=== PATIENT | female | born 1945 | race African-American/Black ===

== ENCOUNTER 2019-04-10 08:59 | Day surgery (SDC) | payer OTHER, BC ==
[2019-04-08 17:46] VITALS: BMI 26.2
[2019-04-10] MEDS ORDERED: BUPIVACAINE HCL/PF 0.5% (5MG/ML) 10 ML VIAL ONE (11:34)
[2019-04-10] MEDS ORDERED: ceFAZolin SODIUM 1 GM VIAL ONE ×3 (11:34→12:36)
[2019-04-10] MEDS ORDERED: MORPHINE SULFATE 10 MG/1 ML *VIAL ONE (11:55)
[2019-04-10] MEDS ORDERED: LIDOCAINE HCL/PF 2% SDV 5ML VIAL ONE (12:01)
[2019-04-10] MEDS ORDERED: PROPOFOL 20 ML ONE (12:02)
[2019-04-10] MEDS ORDERED: ceFAZolin SODIUM 1 GM VIAL IVPB ONE (12:08)
[2019-04-10] MEDS ORDERED: BUPIVACAINE HCL/PF 0.5% (5MG/ML) 10 ML VIAL IJ ONE ×2 (12:21→12:36)
[2019-04-10] MEDS ORDERED: KETOROLAC TROMETHAMINE 30 MG/1 ML VIAL ONE (12:35)
[2019-04-10] MEDS ORDERED: DEXAMETHASONE SOD PHOSPHATE 4 MG/1 ML VIAL ONE (12:35)
[2019-04-10] MEDS ORDERED: ONDANSETRON 4 MG/2 ML VIAL ONE (12:35)
[2019-04-10] MEDS ORDERED: ONDANSETRON 4 MG/2 ML VIAL IVPUSH PRN (12:48)
[2019-04-10] MEDS ORDERED: PROMETHAZINE HCL 25 MG/1 ML VIAL IVPUSH PRN (12:48)
[2019-04-10] MEDS ORDERED: oxyCODONE HCL 5 MG TABLET PO PRN (12:48)
[2019-04-10 13:43] VITALS: TEMP 97.7
[2019-04-10 14:24] VITALS: BP 128/60; PULSE 88
--- NOTE | 2019-04-10 14:52 | OP ---
DATE OF OPERATION: 04/10/2019 PREOPERATIVE DIAGNOSIS: Torn medial meniscus to the left knee. POSTOPERATIVE DIAGNOSES: 1. Torn medial and lateral meniscus, left knee. 2. 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 3. Extensive joint debris. 4. Fissuring and articular damage to the patellar cartilage. 5. Hypertrophic synovium. PROCEDURES PERFORMED: 1. Arthroscopy of the left knee with partial medial and lateral meniscectomy. 2. Stem cell recruitment using microdrilling technique. 3. Osteochondritis dissecans lesion medial femoral condyle. 4. Extensive joint debridement. 5. Chondroplasty. 6. Extensive synovectomy. SURGEON: Wes Lehman MD PLAS[facility] CENTER TECHNICIAN: CRISTIN Lee ANESTHESIA: Deyvi Lyles MD TYPE OF ANESTHESIA: General anesthesia. DESCRIPTION OF PROCEDURE: The procedure consisted of the patient being brought into the operating room and gently transferred from the stretcher to the OR table with all bony prominences well padded. The left knee was prepared and draped in a sterile fashion. The patient was given intravenous antibiotics and copious irrigation throughout the procedure to minimize risk for infection. A complete risk, benefit, alternative discussion was conducted with the patient, which was inclusive of, but not limited to, infection, bleeding, , paralysis, increased pain, need for repeat surgery. Patient asked questions and understood the procedure and desired to proceed with surgical treatment. Following sterile preparation and draping of the left leg, an appropriate time-out was conducted, which was inclusive of, but not limited to, type of surgery, site of surgery, surgeon, and anesthesiologist. Following sterile preparation and draping of the left leg, the suprapatellar medial and lateral joint line portals were used to introduce the arthroscope and arthroscopic instruments. There was noted to be extensive hypertrophic synovium in the suprapatellar pouch, and extensive synovectomy was performed. Medial and lateral gutters without plica or loose body. 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 The medial meniscus was found to have a tear of the posterior horn, and this was resected using shaver and radiofrequency wand. There was noted to be a 1.5-cm dim osteochondritis dissecans lesion on the medial femoral condyle, and using a 0.62-mm drill bit, a pattern of small drill holes was provided to provide stem cells to fill the defect, and these would be recruited for cartilaginous defect in the femoral condyle. The intercondylar region was noted to have extensive joint debris, and an extensive joint debridement was performed. Cruciate ligaments were found to be intact. Lateral meniscus was found to have a tear of the posterior horn, and this was resected using shaver and radiofrequency wand. The knee was then copiously irrigated with sterile saline irrigant. The wounds were closed with 4-0 undyed Vicryl followed by Steri-Strips, Xeroform, 4 x 4's, sterile Webril, JOHNY bandage, and a knee immobilizer. The patient's tourniquet was deflated after approximately 20 minutes of tourniquet time. There were no intraoperative complications. Patient had been transferred from the operating room to the recovery room in excellent condition. WES LEHMAN M.D. [id number]
== END 2019-04-10 14:26 | disposition home or self-care (01) ==
LOC: FASU 08:59
PROVIDERS: ATTEND Orthopaedic Surgery
PROC: 0SBD4ZZ Excision of Left Knee Joint, Percutaneous Endoscopic Approach (ICD-10-PCS; 2019-04-10)
PROC: 0SQD4ZZ Repair Left Knee Joint, Percutaneous Endoscopic Approach (ICD-10-PCS; 2019-04-10)
PROC: 0SBD4ZZ Excision of Left Knee Joint, Percutaneous Endoscopic Approach (ICD-10-PCS; 2019-04-10)
PROC: 0SQD4ZZ Repair Left Knee Joint, Percutaneous Endoscopic Approach (ICD-10-PCS; 2019-04-10)
PROC: 0SBD4ZZ Excision of Left Knee Joint, Percutaneous Endoscopic Approach (ICD-10-PCS; principal; 2019-04-10 11:00)
DX: S83.242A Other tear of medial meniscus, current injury, left knee, initial encounter (principal); S83.282A Other tear of lateral meniscus, current injury, left knee, initial encounter; S83.30XA Tear of articular cartilage of unspecified knee, current, initial encounter; M93.262 Osteochondritis dissecans, left knee; M25.862 Other specified joint disorders, left knee; M67.262 Synovial hypertrophy, not elsewhere classified, left lower leg; X58.XXXA Exposure to other specified factors, initial encounter; Y93.9 Activity, unspecified; Y92.9 Unspecified place or not applicable
CPT/HCPCS: 94760; 97116-GP